=== PATIENT | male | born 1975 | race Caucasian/White ===

== ENCOUNTER 2020-02-03 15:49 | Emergency (ER) | payer BC, OTHER ==
[2020-02-03] MEDS ORDERED: Sodium Chloride 0.9% 2.5 ML Syringe FLUSH PRN (15:51)
[2020-02-03] MEDS ORDERED: Diphtheria,Pertussis(Acell),Tetanus Vaccine 0.5 ML Syringe IM ONE (15:51)
[2020-02-03] MEDS ORDERED: Sodium Chloride 0.9% 1,000 ML IV ONE (15:51)
[2020-02-03] MEDS ORDERED: Sodium Chloride 0.9% 10 ML Syringe FLUSH PRN (15:51)
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
[2020-02-03 16:24] LABS: BLOOD UREA NITROGEN,BUN 14 mg/dL (7.0-18.0); CARBON DIOXIDE,CO2 23.1 mmol/L (21.0-32.0); CHLORIDE,CL 100 mmol/L (98-107); GLUCOSE RANDOM 179 mg/dL (74-106); POTASSIUM,K 3.4 mmol/L (3.5-5.1); SODIUM,NA 135 mmol/L (136-148)
[2020-02-03] MEDS ORDERED: Iopamidol 755 Mg/ML 100 ML Bottle IVPUSH STA (16:34)
[2020-02-03] MEDS ORDERED: Etomidate 2 MG/ML 20 ML SDV IVPUSH ONE (16:41)
[2020-02-03] MEDS ORDERED: Succinylcholine 200 MG/10 ML MDV ONE (16:41)
[2020-02-03] MEDS ORDERED: Rocuronium 100 MG/10 ML MDV ONE (16:41)
[2020-02-03] MEDS ORDERED: fentaNYL 100 MCG/2 ML SDV ONE (16:41)
[2020-02-03] MEDS ORDERED: propofoL 100 ML ONE (16:45)
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
== END 2020-02-03 17:35 ==
LOC: MW.ED 15:49
DX: S06.309A Unspecified focal traumatic brain injury with loss of consciousness of unspecified duration, initial encounter (principal); S27.322A Contusion of lung, bilateral, initial encounter; S02.2XXA Fracture of nasal bones, initial encounter for closed fracture; Z23 Encounter for immunization; Z79.899 Other long term (current) drug therapy; V28.4XXA Motorcycle driver injured in noncollision transport accident in traffic accident, initial encounter; Y92.411 Interstate highway as the place of occurrence of the external cause
CPT/HCPCS: 31500; 36415; 70450; 70486; 71045; 71260; 72125; 72170; 74177; 80053; 80307; 85025; 86850; 86900; 86901; 90471; 90715; 99291; J0330; J3490; J7030; Q9967